=== PATIENT | male | born 1950 | race Caucasian/White ===

== ENCOUNTER 2024-06-03 10:17 | Emergency (ER) | payer MEDICARE ==
[2024-06-03] VITALS (11 sets, daily range): BP systolic 112–136; BP diastolic 59–72
[~2024-06-03] VITALS: Ht 177.8 cm; Wt 93.0 kg
[2024-06-03 11:06] LABS: BASO% 0.9 % (0-3); EOS% 7.9 % (0-8); HEMATOCRIT 48.1 % (39.0-50.0); HEMOGLOBIN 15.5 g/dl (14.0-18.0); IMMATURE GRANULOCYTES 0.2 % (0.0-5.0); LYMPH% 19.4 % (15-41); MEAN CELL VOLUME 94.5 fL CALC (80.0-100.0); MEAN CORPUSCULAR HGB 30.5 pG CALC (26.0-32.0); MEAN CORPUSCULAR HGB CONC 32.2 g/dL CAL (32.0-36.0); MONO% 8.6 % (2-13); NEUT# 3.44 thou/uL (1.82-7.42); RED BLOOD COUNT 5.09 mill/uL (4.70-6.10); RED CELL DISTRI WIDTH 13.3 % (11.5-15.5)
[2024-06-03 11:18] LABS: ALKALINE PHOSPHATASE 91 u/l (38-126); ANION GAP 13 (6-22 (CALC)); BILIRUBIN, TOTAL 1.1 mg/dL (0.2-1.3); BUN 12 mg/dL (8-23); BUN/CREATININE RATIO 14 (12-20 (CALC)); CARBON DIOXIDE 30 mmol/l (22-30); CHLORIDE 97 mmol/l (95-108); CREATININE 0.9 mg/dL (0.7-1.3); ESTIMATED GFR 89 ML/MIN (>=90 (CALC)); POTASSIUM 3.9 mmol/l (3.5-5.1); SGOT/AST 43 u/l (19-48); SODIUM 136 mmol/l (137-146); TOTAL PROTEIN 7.1 g/dL (6.3-8.2)
[2024-06-03] MEDS ORDERED: CHERATUSSIN PO (13:17)
[2024-06-03] MEDS ORDERED: AMOX/K CLAV875 M1 PO (13:17)
[2024-06-03] MEDS ORDERED: ZPAK PO (13:17)
== END 2024-06-03 13:27 | disposition home or self-care (01) ==
LOC: ED 10:17
PROVIDERS: Family Medicine
DX: J11.00 Influenza due to unidentified influenza virus with unspecified type of pneumonia (principal); I10 Essential (primary) hypertension; I25.10 Atherosclerotic heart disease of native coronary artery without angina pectoris; Z95.1 Presence of aortocoronary bypass graft; Z95.5 Presence of coronary angioplasty implant and graft; Z20.822 Contact with and (suspected) exposure to COVID-19